=== PATIENT | female | born 1980 | race Caucasian/White ===

== ENCOUNTER 2017-07-08 17:52 | Day surgery (SDC) | payer BC, MEDICAID ==
[~2017-07-08] VITALS: Wt 72.7 kg
[2017-07-08] VITALS (7 sets, daily range): BP systolic 87–100; BP diastolic 42–60; PULSE 88–107; TEMP 98.9
[~2017-07-08 17:52] MED LIST: DIAZEPAM PO; VICODIN PO; [UNRECOGNIZED DRUG - OTHER]; [UNRECOGNIZED DRUG - OTHER]
[2017-07-08 18:27] LABS: BASO % 0.6 % (0.0-2.0); EOS % 0.2 % (0-4.0); GRAN # 4.2 (1.4-6.5); LYMPH # 0.5 (1.2-3.4); LYMPH % 9.9 % (20.0-51.0); MEAN CELL VOLUME 86 fl (80.0-100.0); MEAN CORPUSCULAR HGB CONC 34 g/dl (33.0-37.0); MONO # 0.6 (0.1-0.6); MONO % 11.1 % (1.7-9.3); PLATELET COUNT 186 K/mm3 (130-400); RED BLOOD COUNT 3.63 M/mm3 (4.10-5.30); REDCELL DISTRIBUTION WIDTH-CV 13.5 % (11.5-14.5)
[2017-07-08 18:29] LABS: HEMATOCRIT 31.3 % (37.0-47.0); HEMOGLOBIN 10.6 g/dl (12.5-16.0); MEAN CORPUSCULAR HEMOGLOBIN 29 pg (27.0-31.0)
[2017-07-08 18:35] LABS: COLLECTION METHOD CATHETER
[2017-07-08 18:41] LABS: BILIRUBIN,TOTAL 0.3 mg/dL (0.0-1.0); C-REACTIVE PROTEIN 2.8 mg/dL (0.0-0.9); CALCIUM 9.2 mg/dL (8.4-10.2); CREATININE, serum 0.6 mg/dL (0.52-1.25); TOTAL PROTEIN 7.4 gm/dL (6.4-8.2)
[2017-07-08 18:42] LABS: PH 5 (5-8); SQUAMOUS EPITHELIAL 0-2 /hpf; URINE APPEARANCE Clear; URINE BACTERIA None Seen /hpf; URINE BILIRUBIN Negative (NEGATIVE); URINE BLOOD 1+ (NEGATIVE); URINE COLOR Colorless; URINE GLUCOSE Negative (NEGATIVE); URINE KETONE Negative (NEGATIVE); URINE LEUKOCYTE ESTERASE Negative (NEGATIVE); URINE NITRATE Negative (NEGATIVE); URINE PROTEIN(semi-quant) Negative (NEGATIVE); URINE RBC 0-2 /hpf; URINE UROBILINOGEN Negative (NEGATIVE)
[2017-07-08] MEDS ORDERED: MULTI VITAMINS1 TAB PO (19:43)
[2017-07-08] MEDS ORDERED: IBU600 MG PO (22:14)
[2017-07-08] MEDS ORDERED: PERCOCET 325 MG1 TA2 PO (22:15)
[2017-07-08] MEDS ORDERED: DOXYCYCLINE HY100 MG PO (22:17)
[2017-07-08] MEDS ORDERED: FLAGYL500 MG PO (22:18)
[2017-07-09] VITALS: BP 96/53; PULSE 104
[2017-07-09 00:45] VITALS: BP 101/51; PULSE 96
== END 2017-07-09 01:05 | disposition home or self-care (01) ==
LOC: COL.ER 17:52 → LDRO 20:48 → COL.ER 21:09 → SDCO 21:09 → LDRO 21:20 → COL.ER 21:20 → EDSTATUS 21:33 → OB 21:35 → LDRO 21:35
PROVIDERS: Emergency Medicine
DX: O02.1 Missed abortion (principal); O08.0 Genital tract and pelvic infection following ectopic and molar pregnancy; N71.9 Inflammatory disease of uterus, unspecified; R50.9 Fever, unspecified; G43.909 Migraine, unspecified, not intractable, without status migrainosus; Z80.3 Family history of malignant neoplasm of breast; Z82.3 Family history of stroke; Z82.49 Family history of ischemic heart disease and other diseases of the circulatory system
CPT/HCPCS: OP; J0690; J2210; J2405; J2704; J3010; J7030

== ENCOUNTER 2019-09-01 09:49 | Outpatient (CLI) | payer MEDICAID ==
[~2019-09-01] VITALS: Ht 167.6 cm; Wt 80.5 kg
--- NOTE | 2019-09-01 09:30 | NUR ---
Presents to labor and delivery. States thought maybe her water broke on Thursday. Assessment done, questions offered and answered. Amnio test done, moderate amount of white color drainage with tinge of yellow.
[2019-09-01 09:43] VITALS: BP 104/68; PULSE 121; TEMP 98.8
[~2019-09-01 09:49] MED LIST changes: +DOXYCYCLINE 10100 MG PO; +DOXYCYCLINE HY100 MG PO; +FLAGYL500 MG PO; +IBU600 MG PO; +IBU800 M1 PO; +MAGNESIUM200 MG PO; +MULTI VITAMINS1 TAB PO; +MULTIPLE VITAMI1 CAP PO; +PERCOCET 325 MG1 TA2 PO; +PRENATAL FORMU1 EAC3 PO; +WELLBUTRIN XL150 MG PO
[2019-09-01] MEDS ORDERED: PRENATAL TABLET PO (09:53)
[2019-09-01 10:00] VITALS: BP 116/65; PULSE 107
[2019-09-01 10:30] VITALS: PULSE 96
[2019-09-01 11:00] VITALS: BP 102/60; PULSE 97
[2019-09-01 11:10] VITALS: BP 107/63; PULSE 98
[2019-09-01 11:20] VITALS: BP 107/63; PULSE 98
--- NOTE | 2019-09-01 11:20 | NUR ---
Patient off monitor to change into clothes and void. Patient given discharge instructions and agrees to plan of care. 1130: Patient ambulates off unit.
== END 2019-09-01 11:30 | disposition home or self-care (01) ==
LOC: LDRO 09:49
DX: O42.92 Full-term premature rupture of membranes, unspecified as to length of time between rupture and onset of labor (principal); Z3A.37 37 weeks gestation of pregnancy

== ENCOUNTER 2019-09-19 00:01 | Inpatient (IN) | payer MEDICAID ==
[2019-09-19] VITALS (40 sets, daily range): BP systolic 77–120; BP diastolic 44–71; PULSE 79–112; TEMP 97.6–98.4
[~2019-09-19] VITALS: Ht 167.6 cm; Wt 77.3 kg
[~2019-09-19 00:01] MED LIST changes: +PRENATAL TABLET PO
--- NOTE | 2019-09-19 00:01 | NUR ---
HERE WITH FOR LABOR CHECK. BELIEVES MAY HAVE SROM AT 2320 BUT MUCH BLOODY SHOW . NO OBVIOUS FLUID NOTED .UNCOMFORTBALE WITH Q 2-3 MIN CTX. 6/100/0 DR FRANKLIN NOTIFIED 010 MELISSA HERE FOR EPIDURAL . TEST AT 0115.
[2019-09-19 00:56] LABS: BASO # 0.1 (0.0-0.2); BASO % 0.6 % (0.0-2.0); EOS # 0.1 (0.0-0.7); EOS % 1.4 % (0-4.0); GRAN # 4.9 (1.4-6.5); GRAN % 60.7 % (42.2-75.2); HEMATOCRIT 37.7 % (37.0-47.0); HEMOGLOBIN 12.7 g/dl (12.5-16.0); LYMPH # 1.9 (1.2-3.4); LYMPH % 24.3 % (20.0-51.0); MEAN CELL VOLUME 92 fl (80.0-100.0); MEAN CORPUSCULAR HEMOGLOBIN 31 pg (27.0-31.0); MEAN CORPUSCULAR HGB CONC 34 g/dl (33.0-37.0); MEAN PLATELET VOLUME 10.7 fl (7.4-10.4); MONO % 12.1 % (1.7-9.3); PLATELET COUNT 176 K/mm3 (130-400)
--- NOTE | 2019-09-19 01:30 | NUR ---
COMFORTABLE WITH EPIDURAL.SPOAUSE AT BEDSIDE - SUPPORTIVE
--- NOTE | 2019-09-19 06:15 | NUR ---
0615-Recieved bedside shift report. Patient WR with peanut ball inplace. Comfortable with epidural. FHR reactive, contractions every 2-5 min via toco no pitocin infusing. LR infusing per protocol. Denies needs. 0628-Dr. Romero updated see physician notification.
--- NOTE | 2019-09-19 07:00 | NUR ---
0700-Dr. Romero on unit Reviews strip. In to see patient and discuss plan of care. Patient WL with peanut ball. 0720-Maternal BP 84/49 and maternal HR 88bpm asymptomatic rechecked BP 84/47, 10mg ephedrine given per protocol, see EMAR. 0730-Maternal BP 72/48 maternal HR 101bpm asymptomatic, 10mg ephedrine given per protocol see EMAR. 0739-Maternal BP 100/50 maternal HR 100pbm.
--- NOTE | 2019-09-19 08:00 | NUR ---
0800-Dr. Romero on unit. Reviews FHR monitor. In to see patient. 0805-SVE by , AROM by MD, clear fluid. FHR decel following exam, repositioned WR, difficulty tracing FHR audible FHR decel remains. Repositioned knee chest. RN holding EFM in place, FHR 70-90bpm, maternal pulse ox in place tracing maternal hr 123bpm, MD orders for patient to be set up for delivery. 0810-Patient begins pushing with contraction. Patient does not move vertex well. Vaccum placement attempt by MD. Patient continues to push with contraction. 0811-FHR tracing 110-120bpm, Patient stops pushing and deny care provided. Repositioned sitting up in [facility] and MD orders to start pit at 2mu/min, started at this time.
[2019-09-19] MEDS ORDERED: MOTRIN 800800 MG/TAB PO (08:40)
--- NOTE | 2019-09-19 09:25 | NUR ---
924-MD to patient room to check cervix, Complete per MD. Set up for delivery 925-Patient begin pushing with contraction with MD. Moves Vertex well. 926-Spontaneous delivery of head immediately followed by body. Viable femal infant to mothers abdomen. Cord clamped x2 and cut by FOB. Care of infant assumed by SO Berger. Apgars 8/9/9. 34-Manual removal of placenta by MD, Fundal massage firm. Lochia WNl. Pitocin bolus per protocol and order. Vaginal laceration repaired by MD. Emily care provided. Updated on plan of care and safety.
--- NOTE | 2019-09-19 13:10 | NUR ---
1300- Pt calls out complaining of buring and pain at IV site. Flushed with NS, Pt states burning is worse, no signs of redness or infiltration. SO Bermudez updated and we agree to DC IV. 1310- IV out, pressure dressing applied. Pt given ice pack for comfort.
--- NOTE | 2019-09-19 13:30 | NUR ---
1330-RLE remains unable to be held 5 seconds, patient placed on bedpan and easily voids 600ml, clear urine. Deny care provided. Updated on safety and plan of care. 1500-Patient remains unable to lift and hold RLE, assisted to wheel chair with pivot transfer and onto toilet. Voids 1000ml clear urine, deny care assisted. Taken via wheelchair to room 219 and oriented. Updated on plan of care and safety.
[2019-09-20 04:15] VITALS: BP 88/55; PULSE 82; TEMP 98
[2019-09-20 08:30] VITALS: BP 103/60; PULSE 91; TEMP 97.9
--- NOTE | 2019-09-20 14:14 | NUR ---
1400 DISCHARGE INSTRUCTIONS REVIEWED WITH PATIENT. PATIENT VERBALIZED UNDERSTANDING. PATIENT WILL LET THIS RN KNOW WHEN SHE IS READY TO LEAVE.
--- NOTE | 2019-09-20 15:54 | NUR ---
1545 ALL PERSONAL BELONGINGS GATHERED FROM PATIENT ROOM. PATIENT LEFT AMBULATORY AND IN NO APPARENT DISTRESS. PATIENT ACCOMPANIED BY SPOUSE AND THIS RN.
== END 2019-09-20 15:45 | disposition home or self-care (01) | DRG 806 ==
LOC: LDRO 00:01 → OB 00:31 → LDR 00:31 → OB 15:00
PROVIDERS: ADMIT Obstetrics & Gynecology
PROC: 10E0XZZ Delivery of Products of Conception, External Approach (ICD-10-PCS; principal; 2019-09-19)
PROC: 10D17Z9 Manual Extraction of Products of Conception, Retained, Via Natural or Artificial Opening (ICD-10-PCS; 2019-09-19)
PROC: 0HQ9XZZ Repair Perineum Skin, External Approach (ICD-10-PCS; 2019-09-19)
DX: O48.0 Post-term pregnancy (principal); O71.4 Obstetric high vaginal laceration alone; Z37.0 Single live birth; O99.344 Other mental disorders complicating childbirth; F32.9 Major depressive disorder, single episode, unspecified; O99.02 Anemia complicating childbirth; O26.893 Other specified pregnancy related conditions, third trimester; D64.9 Anemia, unspecified; Z3A.40 40 weeks gestation of pregnancy; O62.2 Other uterine inertia
CPT/HCPCS: J0690; J2590; J2791; J7120

== ENCOUNTER → 2023-12-04 | Outpatient (CLI) | payer OTHER ==
[~2023-12-04] MED LIST changes: +MOTRIN 800800 MG/TAB PO
== END ==
LOC: MC.RAD 14:09
DX: Z12.31 Encounter for screening mammogram for malignant neoplasm of breast (principal)